=== PATIENT | female | born 1990 | race Caucasian/White ===

== ENCOUNTER 2017-02-06 11:42 | Inpatient (IN) | payer OTHER ==
[2017-02-06 12:41] VITALS: BMI 24.7
[2017-02-06] MEDS ORDERED: ACETAMINOPHEN 325 MG TABLET (FP) PO PRN (15:28)
[2017-02-06] MEDS ORDERED: MAGNESIUM HYDROX 2400MG/30ML ORAL SUSPENSION 30 ML CUP PO PRN (15:28)
[2017-02-06] MEDS ORDERED: MAG HYDROX/AL HYDROX/SIMETH 30 ML UNIT-DOSE CUP PO PRN (15:28)
[2017-02-06] MEDS ORDERED: guaiFENesin/D-METHORPHAN HB 10 ML UNIT-DOSE CUPS PO PRN (15:28)
[2017-02-06] MEDS ORDERED: IBUPROFEN 400 MG TABLET (FP) PO PRN (15:28)
[2017-02-06] MEDS ORDERED: P-EPHED 60MG/TRIPROLIDI 2.5MG TABLET PO PRN (15:28)
[2017-02-06] MEDS ORDERED: LOPERAMIDE HCL 2 MG CAPSULE PO PRN (15:28)
[2017-02-06] MEDS ORDERED: MAGNESIUM CITRATE 300 ML BOTTLE PO PRN (15:28)
[2017-02-06] MEDS ORDERED: MENTHOL/PHENOL 1 EACH UD MM PRN (15:28)
--- NOTE | 2017-02-06 15:28 | HP ---
COWS - Scale Resting Pulse: 0= [place] 80 or Below Sweatin= Chills/Flushing Restless Observation: 3= Extraneous Movement Pupil Size: 0= Normal to Room Light Bone or Joint Aches: 4=Acute Joint/Muscle Pain Runny Nose/ Eye Tearin= Nasal Congestion GI Upset > 30mins: 1= Stomach Cramp Tremor Observation: 1= Tremor [place], Not Seen Yawning Observation: 1= 1-2x During Session Anxiety or Irritability: 2=Irritable/Anxious Goose Flesh Skin: 0=Smooth Skin COWS Score: 14 Admission ROS [facility] - [facility] Chief Complaint: WITHDRAWAL SX FROM HEROIN Allergies/Adverse Reactions: Allergies Allergy/AdvReac Type Severity Reaction Status Date / Time Penicillins Allergy Intermediate Itching Verified 02/06/17 15:28 risperidone [From Risperdal] Allergy Intermediate Swelling Verified 02/06/17 15: 28 History of Present Illness: 26 Y/O FEMALE WITH A HX OF HEROIN DEPENDENCE SEEKING DETOX [place]. PT REPORTS HE WAS IN [facility] IN [place] BUT WENT TO HALF-WAY IN NOVEMBER 28, 2016 TO January. PT STATES SHE WENT BACK TO THE SAME MMTP AFTER HALF-WAY ON January. SAYS SHE STOPPED GOING TO [facility] A WEEK AGO AFTER TWO CLINIC VISITS BECAUSE "I WANTED TO USE DRUGS". SHE CLAIMS SHE WAS ON 20 MG METHADONE PO DAILY. PT STATES SHE OVERDOSED AND WAS TAKEN TO [facility] ON 04/08/16 AND DISCHARGED SAME DAY. PT STATES SHE LOST HER MMTP CARD AND UNABLE TO FURNISH THE CLINIC PHONE NUMBER. Exam Limitations: No Limitations - Ebola screening Have you traveled outside of the country in the last 21 days: No (N) Have you had contact with anyone from an Ebola affected area: No Have you been sick,other than usual withdrawal symptoms: No Do you have a fever: No - Review of Systems Constitutional: Loss of Appetite, Night Sweats, Changes in sleep EENT: reports: Tearing, Nose Congestion, Dental Problems (MISSING TOOTH) Respiratory: reports: Shortness of Breath (HX ASTHMA), Wheezing Cardiac: reports: Lightheadedness, Palpitations GI: reports: Constipated, Diarrhea, Nausea, Vomiting : reports: No Symptoms Reported Musculoskeletal: reports: Back Pain, Joint Pain, Muscle Pain Integumentary: reports: Bruising (IVD INJ TRACKS ON BOTH ARMS AND ANKLES.), Rash (FACE.) Neuro: reports: Headache, Dizziness Endocrine: reports: No Symptoms Reported Hematology: reports: No Symptoms Reported Psychiatric: reports: Orientated x3 Other Systems: Reviewed and Negative Patient History - Patient Medical History Hx Anemia: No Hx Asthma: Yes (MDI) Hx Cardiac Disorders: No Hx Hypertension: No Hx Hypercholesterolemia: No HX Cerebrovascular Accident: No Hx Seizures: No Hx Diabetes: No Hx Gastrointestinal Disorders: No Hx Genitourinary Disorders: No Hx Sexually Transmitted Disorders: Yes (HX CHLAMYDIA [place]) Hx Renal Disease (ESRD): No Hx Thyroid Disease: No Hx Human Immunodeficiency Virus (HIV): No (NEGATIVE HX) Hx Hepatitis C: No Hx Depression: Yes (AND ANXIETY) Hx Suicide Attempt: No (DENIES) Hx Bipolar Disorder: Yes - Patient Surgical History Past Surgical History: No Hx Neurologic Surgery: No Hx Cataract Extraction: No Hx Cardiac Surgery: No Hx Lung Surgery: No Hx Breast Surgery: No Hx Breast Biopsy: No Hx Abdominal Surgery: No Hx Appendectomy: No Hx Cholecystectomy: No Hx Genitourinary Surgery: No Hx Section: No Hx Orthopedic Surgery: No Hx Hysterectomy: No Anesthesia Reaction: No - PPD History Previous Implant?: Yes Documented Results: Negative w/o proof Implanted On Prior [facility] Admission?: No PPD to be Administered?: Yes - Reproductive History Patient is a Female of Child Bearing Age (11 -55 yrs old): Yes LMP comment: 2 YRS AGO-IRREGULAR PERIODS Patient : Yes - Smoking Cessation Smoking history: Current every day smoker Have you smoked in the past 12 months: Yes Aproximately how many cigarettes per day: 10 Hx Chewing Tobacco Use: No Initiated information on smoking cessation: Yes 'Breaking Loose' booklet given: 02/06/17 - Substance & Tx. History Hx Alcohol Use: No (DENIES) Hx Substance Use: Yes (HERION/COCAINE) Substance Use Type: Cocaine, Heroin Hx Substance Use Treatment: Yes (LAST DETOX AT [facility] - Substances Abused Heroin Route: Injection Frequency: Daily Amount used: 20 bags of heroin Age of first use: 23 Date of Last Use: 02/06/17 Crack Route: Smoking Frequency: Daily Amount used: 20 bags- $200 Age of first use: 23 Date of Last Use: 02/06/17 Marijuana/Hashish Route: Smoking Frequency: Daily Amount used: 3 BLUNTS Age of first use: 17 Date of Last Use: 02/06/17 Family Disease History - Family Disease History Family History: Denies Admission Physical Exam [facility] - Vital Signs Vital Signs: Vital Signs - 24 hr 02/06/17 12:38 Temperature 95.5 F L Pulse Rate 74 Respiratory 18 Rate Blood Pressure 115/65 - Physical General Appearance: Yes: Moderate Distress, Irritable, Anxious HEENTM: Yes: EOMI, Normocephalic, Pharynx Normal Respiratory: Yes: Chest Non-Tender, Lungs Clear, Normal Breath Sounds, No Respiratory Distress Neck: Yes: No masses,lesions,Nodules, Supple, Trachea in good position Breast: Yes: Breast Exam Deferred Cardiology: Yes: Regular Rhythm, Regular Rate, S1, S2, Murmur Abdominal: Yes: Normal Bowel Sounds, Non Tender, Flat, Soft Genitourinary: Yes: Other (N/C) Back: Yes: Within Normal Limits Musculoskeletal: Yes: full range of Motion, Gait Steady Extremities: Yes: Normal Range of Motion, Non-Tender Neurological: Yes: hot plate plywood press feeder II-XII NML intact, Fully Oriented, Alert, Motor Strength 5/5 Integumentary: Yes: Dry, Warm Lymphatic: Yes: Within Normal Limits - Diagnostic (1) Opioid dependence with withdrawal Current Visit: Yes Status: Acute (2) Cocaine dependence, uncomplicated Current Visit: Yes Status: Acute (3) Cannabis dependence, uncomplicated Current Visit: Yes Status: Acute (4) Asthma Current Visit: Yes Status: Acute Qualifiers: Asthma severity: unspecified severity Asthma persistence: unspecified Asthma complication type: uncomplicated Qualified Code(s): J45.909 - Unspecified asthma, uncomplicated Cleared for Admission [facility] - Detox or Rehab [facility] Level of Care: Medically Managed Detox Regimen/Protocol: Methadone [facility] Breath Alcohol Content Breath Alcohol Content: 0 Urine Pregancy Test - Result Urine Test Results: Negative- NO Line Present Urine Drug Screen - Results Drug Screen Negative: No Urine Drug Screen Results: THC-Marijuana, DIANA-Cocaine, OPI-Opiates
[2017-02-06] MEDS ORDERED: ALBUTEROL SO4 18 GM HFA INHALER IH PRN (15:31)
[2017-02-06] MEDS ORDERED: diphenhydrAMINE HCL 25 MG CAPSULE (FP) PO PRN (16:07)
[2017-02-06] MEDS: NICOTINE 14 MG/24 HOURS TOPICAL PATCH TD SCH (17:12)
[2017-02-06] MEDS: diazePAM 5 MG TABLET PO PRN ×2 (17:14→22:19)
[2017-02-06] MEDS ORDERED: METHADONE HCL 10 MG TABLET (FOR DETOX USE ONLY) PO ONE ×2 (17:15→23:00)
[2017-02-06 21:32] LABS: URINE APPEARANCE CLEAR; URINE BILIRUBIN NEGATIVE (NEGATIVE); URINE BLOOD NEGATIVE (NEGATIVE); URINE COLOR LTYELLOW; URINE GLUCOSE (UA) NEGATIVE (NEGATIVE); URINE KETONE NEGATIVE (NEGATIVE); URINE LEUK ESTERASE NEGATIVE (NEGATIVE); URINE NITRITE NEGATIVE (NEGATIVE); URINE PROTEIN NEGATIVE (NEGATIVE); URINE UROBILINOGEN NEGATIVE mg/dL (0.2-1.0)
[2017-02-06] MEDS: QUEtiapine FUMARATE 100 MG TABLET (FP) PO SCH (22:18)
[2017-02-06] MEDS: THIAMINE HCL 100 MG TABLET (FP) PO SCH (22:18)
[2017-02-07] MEDS: diazePAM 5 MG TABLET PO PRN ×3 (06:32→22:18)
--- NOTE | 2017-02-07 07:50 | CONSULT ---
[facility] Psychiatric Consult - Data Date of interview: 02/07/17 Admission source: [facility] Identifying data: This is 26 years old female with no psychiatric hospitalization history intoxicated with: Opioids, Cocaine and Cannabis Substance Abuse History: - Smoking Cessation. Smoking history: Current every day smoker. Have you smoked in the past 12 months: Yes. Aproximately how many cigarettes per day: 10. Hx Chewing Tobacco Use: No. Initiated information on smoking cessation: Yes. 'Breaking Loose' booklet given: 02/06/17. - Substance & Tx. History. Hx Alcohol Use: No (DENIES). Hx Substance Use: Yes (HERION/ COCAINE). Substance Use Type: Cocaine, Heroin. Hx Substance Use Treatment: Yes (LAST DETOX AT [facility] - Substances Abused. Heroin. Route: Injection. Frequency: Daily. Amount used: 20 bags of heroin. Age of first use : 23. Date of Last Use: 02/06/17. Crack. Route: Smoking. Frequency: Daily. Amount used: 20 bags- $200. Age of first use: 23. Date of Last Use: . Marijuana/Hashish. Route: Smoking. Frequency: Daily. Amount used : 3 BLUNTS. Age of first use: 17. Date of Last Use: 02/06/17 Medical History: Asthma Psychiatric History: Patient reports anxiety and insomnia, reports taking prior to admission: Seroquel 100mg po qhs Physical/Sexual Abuse/Trauma History: Denies Additional Comment: Seroquel 100mg po qhs Mental Status Exam - Mental Status Exam Alert and Oriented to: Person Cognitive Function: Fair Patient Appearance: Unkempt Mood: Sad Affect: Flat Patient Behavior: Sedated Speech Pattern: Delayed Voice Loudness: Mildly Soft/Quiet, Limited Variation Thought Disorder: Being Controlled Hallucinations: Denies Suicidal Ideation: Denies Insight/Judgement: Fair Sleep: Difficulty falling asleep Appetite: Fair Muscle strength/Tone: Mild Hypotonicity Gait/Station: Shuffling Additional Comments: Seroquel 100mg po qhs Psychiatric Findings - Problem List ([place] 1, 2,3) (1) Drug-induced mood disorder Current Visit: Yes Status: Acute (2) Cannabis dependence, uncomplicated Current Visit: Yes Status: Acute (3) Cocaine dependence, uncomplicated Current Visit: Yes Status: Acute (4) Opioid dependence with withdrawal Current Visit: Yes Status: Acute - Initial Treatment Plan Initial Treatment Plan: Seroquel 100mg po qhs
[2017-02-07] MEDS ORDERED: METHADONE HCL 10 MG TABLET (FOR DETOX USE ONLY) PO ONE (10:00)
[2017-02-07 10:13] LABS: CHLORIDE 102 mmol/L (98-107); SODIUM 139 mmol/L (136-145)
[2017-02-07 10:25] LABS: ALK PHOS 124 U/L (45-117); ANION GAP 7 (8-16); BILIRUBIN,TOTAL 0.4 mg/dL (0.2-1.0); BLOOD UREA NITROGEN 10 mg/dL (7-18); CALCIUM 8.8 mg/dL (8.5-10.1); CO2 30 mmol/L (21-32); CREATININE 0.8 mg/dL (0.55-1.02); GLUCOSE,RANDOM 116 mg/dL (74-106); SGOT/AST 74 U/L (15-37); SGPT/ALT 109 U/L (12-78); TOT PROT 6.8 g/dl (6.4-8.2)
[2017-02-07 10:47] LABS: HEMATOCRIT 39.7 % (32.4-45.2); HEMOGLOBIN 12.7 GM/dL (10.7-15.3); MCH 26.9 pg (25.7-33.7); MEAN CELL VOLUME 84.1 fl (80-96); MEAN PLT VOLUME 7.4 fl (7.5-11.1); PLATELET COUNT 396 K/MM3 (134-434); RBC 4.73 M/mm3 (3.60-5.2); RDW 16.9 % (11.6-15.6); WHITE BLOOD COUNT 5.7 K/mm3 (4.0-10.0)
[2017-02-07] MEDS: PRENATAL VITAMINS W/ FOLIC ACID TABLET (FP) PO SCH (10:51)
[2017-02-07] MEDS: NICOTINE 14 MG/24 HOURS TOPICAL PATCH TD SCH (10:52)
[2017-02-07] MEDS: NICOTINE POLACRILEX 2 MG GUM BUC PRN ×2 (10:54→21:22)
--- NOTE | 2017-02-07 11:24 | PN ---
[facility] COWS - Scale Resting Pulse: 1= [place] 81-100 Sweatin= Chills/Flushing Restless Observation: 1= Difficult to Sit Still Pupil Size: 1= Pupils >than Normal Bone or Joint Aches: 1= Mild Discomfort Runny Nose/ Eye Tearin= Nasal Congestion GI Upset > 30mins: 1= Stomach Cramp Tremor Observation of Outstretched Hands: 1= Tremor [employer], Not Seen Yawning Observation: 0= None Anxiety or Irritability: 1=Feels Anxious/Irritable Goose Flesh Skin: 0=Smooth Skin COWS Score: 9 [facility] Progress Note (SOAP) Subjective: interrupted sleep, sweats Objective: 02/07/17 11:22 Vital Signs Temperature 98.6 F 02/07/17 10:00 Pulse Rate 106 H 02/07/17 10:00 Respiratory Rate 17 02/07/17 10:00 Blood Pressure 100/41 02/07/17 10:00 O2 Sat by Pulse Oximetry (%) Laboratory Tests 02/06/17 02/07/17 02/07/17 21:00 07:54 07:54 WBC 5.7 RBC 4.73 Hgb 12.7 Hct 39.7 MCV 84.1 MCH 26.9 MCHC 32.0 RDW 16.9 H Plt Count 396 MPV 7.4 L Sodium 139 Potassium 4.0 Chloride 102 Carbon Dioxide 30 Anion Gap 7 L BUN 10 Creatinine 0.8 Creat Clearance w eGFR > 60 Random Glucose 116 H Calcium 8.8 Total Bilirubin 0.4 AST 74 H ALT 109 H Alkaline Phosphatase 124 H Total Protein 6.8 Albumin 3.0 L Urine Color Ltyellow Urine Appearance Clear Urine pH 8.0 Ur Specific [place] 1.012 Urine Protein Negative Urine Glucose (UA) Negative Urine Ketones Negative Urine Blood Negative Urine Nitrite Negative Urine Bilirubin Negative Urine Urobilinogen Negative Ur Leukocyte Esterase Negative pt aox3 in nad ambulating Assessment: 02/07/17 11:23 withdrawal sx's elevated transaminases Plan: cont. detox increase fluids sgot/sgpt repeat d/c tylenol
[2017-02-07] MEDS ORDERED: FLU VACCINE QUAD 60 MCG/0.5 ML (MDV 17-18) IM ONE (12:00)
--- NOTE | 2017-02-07 13:02 | EKG ---
Test Reason : Blood Pressure : / mmHG Vent. Rate : 073 BPM Atrial Rate : 073 BPM P-R Int : 112 ms QRS Dur : 088 ms QT Int : 404 ms P-R-T Axes : -43 043 036 degrees QTc Int : 445 ms UNUSUAL P AXIS, POSSIBLE ECTOPIC ATRIAL RHYTHM ABNORMAL ECG NO PREVIOUS ECGS AVAILABLE Confirmed by MAGEN HAYNES MD ([id number]) on 02/07/2017 1:02:04 PM Referred By: Kash Guevara Confirmed By:MAGEN HAYNES MD
[2017-02-07 15:02] LABS: SICKLE CELL SCREEN POSITIVE (NEGATIVE)
[2017-02-07] MEDS: THIAMINE HCL 100 MG TABLET (FP) PO SCH (22:18)
[2017-02-07] MEDS: QUEtiapine FUMARATE 100 MG TABLET (FP) PO SCH ×2 (22:18→22:19)
[2017-02-08] MEDS: NICOTINE POLACRILEX 2 MG GUM BUC PRN ×5 (05:41→17:20)
[2017-02-08] MEDS ORDERED: METHADONE HCL 5 MG TABLET (FOR DETOX USE ONLY) PO ONE (10:00)
[2017-02-08 10:03] LABS: SGOT/AST 84 U/L (15-37); SGPT/ALT 115 U/L (12-78)
[2017-02-08] MEDS: NICOTINE 14 MG/24 HOURS TOPICAL PATCH TD SCH (10:38)
[2017-02-08] MEDS: PRENATAL VITAMINS W/ FOLIC ACID TABLET (FP) PO SCH (10:38)
[2017-02-08] MEDS: diazePAM 5 MG TABLET PO PRN ×3 (10:40→22:32)
--- NOTE | 2017-02-08 17:17 | PN ---
S COWS - Scale Resting Pulse: 1= [place] 81-100 Sweatin= Chills/Flushing Restless Observation: 3= Extraneous Movement Pupil Size: 0= Normal to Room Light Bone or Joint Aches: 2= Severe Diffuse Aches Runny Nose/ Eye Tearin= Runny Nose/Eyes GI Upset > 30mins: 2= Nausea/Diarrhea Tremor Observation of Outstretched Hands: 2= Slight Tremor Visible Yawning Observation: 1= 1-2x During Session Anxiety or Irritability: 2=Irritable/Anxious Goose Flesh Skin: 0=Smooth Skin COWS Score: 16 S Progress Note (SOAP) Subjective: Sweating, anxious, interrupted sleep Objective: 02/08/17 17:16 Last Vital Signs Temp Pulse Resp BP Pulse Ox 98 F 98 H 18 121/98 02/08/17 14:03 02/08/17 14:03 02/08/17 14:03 02/08/17 14:03 Laboratory Tests 02/06/17 02/07/17 02/07/17 21:00 07:54 07:54 WBC 5.7 RBC 4.73 Hgb 12.7 Hct 39.7 MCV 84.1 MCH 26.9 MCHC 32.0 RDW 16.9 H Plt Count 396 MPV 7.4 L Sickle Cell Screen Positive Sodium Potassium Chloride Carbon Dioxide Anion Gap BUN Creatinine Creat Clearance w eGFR Random Glucose Calcium Total Bilirubin AST ALT Alkaline Phosphatase Total Protein Albumin Urine Color Ltyellow Urine Appearance Clear Urine pH 8.0 Ur Specific [place] 1.012 Urine Protein Negative Urine Glucose (UA) Negative Urine Ketones Negative Urine Blood Negative Urine Nitrite Negative Urine Bilirubin Negative Urine Urobilinogen Negative Ur Leukocyte Esterase Negative RPR Titer HIV 1&2 Antibody Screen Negative HIV P24 Antigen Negative 02/07/17 02/07/17 02/08/17 07:54 07:54 08:00 WBC RBC Hgb Hct MCV MCH MCHC RDW Plt Count MPV Sickle Cell Screen Sodium 139 Potassium 4.0 Chloride 102 Carbon Dioxide 30 Anion Gap 7 L BUN 10 Creatinine 0.8 Creat Clearance w eGFR > 60 Random Glucose 116 H Calcium 8.8 Total Bilirubin 0.4 AST 74 H 84 H ALT 109 H 115 H Alkaline Phosphatase 124 H Total Protein 6.8 Albumin 3.0 L Urine Color Urine Appearance Urine pH Ur Specific [place] Urine Protein Urine Glucose (UA) Urine Ketones Urine Blood Urine Nitrite Urine Bilirubin Urine Urobilinogen Ur Leukocyte Esterase RPR Titer Nonreactive HIV 1&2 Antibody Screen HIV P24 Antigen Labs noted Assessment: 02/08/17 17:16 Withdrawal symptoms Plan: Continue detox
[2017-02-08] MEDS: QUEtiapine FUMARATE 100 MG TABLET (FP) PO SCH ×2 (22:32→23:22)
[2017-02-08] MEDS: THIAMINE HCL 100 MG TABLET (FP) PO SCH (22:32)
[2017-02-09] MEDS: diazePAM 5 MG TABLET PO PRN ×3 (06:02→14:59)
[2017-02-09] MEDS: NICOTINE POLACRILEX 2 MG GUM BUC PRN ×5 (06:03→20:19)
[2017-02-09] MEDS ORDERED: METHADONE HCL 5 MG TABLET (FOR DETOX USE ONLY) PO ONE (10:00)
[2017-02-09] MEDS: PRENATAL VITAMINS W/ FOLIC ACID TABLET (FP) PO SCH (10:53)
[2017-02-09] MEDS: NICOTINE 14 MG/24 HOURS TOPICAL PATCH TD SCH (10:54)
--- NOTE | 2017-02-09 16:04 | PN ---
S Progress Note (SOAP) Subjective: Interrupted sleep, tremor, diarrhea, sweating Objective: 02/09/17 16:03 Last Vital Signs Temp Pulse Resp BP Pulse Ox 97 F L 101 H 18 113/77 02/09/17 14:49 02/09/17 14:49 02/09/17 14:49 02/09/17 14:49 Laboratory Tests 02/06/17 02/07/17 02/07/17 21:00 07:54 07:54 WBC 5.7 RBC 4.73 Hgb 12.7 Hct 39.7 MCV 84.1 MCH 26.9 MCHC 32.0 RDW 16.9 H Plt Count 396 MPV 7.4 L Sickle Cell Screen Positive Sodium Potassium Chloride Carbon Dioxide Anion Gap BUN Creatinine Creat Clearance w eGFR Random Glucose Calcium Total Bilirubin AST ALT Alkaline Phosphatase Total Protein Albumin Urine Color Ltyellow Urine Appearance Clear Urine pH 8.0 Ur Specific [place] 1.012 Urine Protein Negative Urine Glucose (UA) Negative Urine Ketones Negative Urine Blood Negative Urine Nitrite Negative Urine Bilirubin Negative Urine Urobilinogen Negative Ur Leukocyte Esterase Negative RPR Titer HIV 1&2 Antibody Screen Negative HIV P24 Antigen Negative 02/07/17 02/07/17 02/08/17 07:54 07:54 08:00 WBC RBC Hgb Hct MCV MCH MCHC RDW Plt Count MPV Sickle Cell Screen Sodium 139 Potassium 4.0 Chloride 102 Carbon Dioxide 30 Anion Gap 7 L BUN 10 Creatinine 0.8 Creat Clearance w eGFR > 60 Random Glucose 116 H Calcium 8.8 Total Bilirubin 0.4 AST 74 H 84 H ALT 109 H 115 H Alkaline Phosphatase 124 H Total Protein 6.8 Albumin 3.0 L Urine Color Urine Appearance Urine pH Ur Specific [place] Urine Protein Urine Glucose (UA) Urine Ketones Urine Blood Urine Nitrite Urine Bilirubin Urine Urobilinogen Ur Leukocyte Esterase RPR Titer Nonreactive HIV 1&2 Antibody Screen HIV P24 Antigen Labs noted Assessment: 02/09/17 16:04 Withdrawal symptoms Plan: Continue detox Encouraged to drink lots of water for hydration
--- NOTE | 2017-02-09 16:53 | PN ---
Psychiatric Progress Note Vital Signs: Vital Signs Period Temp Pulse Resp BP Sys/Howard Pulse Ox Last 24 Hr 96.4 F-97.9 F 87-104 16-20 113-125/66-77 Date of Session: 02/09/17 Chief Complaint:: "I'm having difficultly sleeping. I need more medications." HPI: Pt. admitted to for opioid, cocaine, and cannabis dependence. ROS: Pt. alert and oriented. Pt. visible on unit. Current Medications: Active Medications Generic Name Dose Route Start Last Admin Trade Name Freq PRN Reason Stop Dose Admin Al Hydroxide/Mg Hydroxide 30 ml 02/06/17 15:28 Mylanta Oral Suspension - PO Q6H PRN DYSPEPSIA Albuterol Sulfate 0 puff 02/06/17 15:31 Ventolin Hfa Inhaler - IH Q4H PRN ASTHMA Diphenhydramine HCl 25 mg 02/06/17 16:07 Benadryl - PO TID PRN FOR ITCHING Eucalyptus/Menthol/Phenol/Sorbitol 1 each 02/06/17 15:28 Cepastat Lozenge - MM Q4H PRN SORE THROAT Guaifenesin 10 ml 02/06/17 15:28 Robitussin Dm - PO Q6H PRN COUGH Ibuprofen 400 mg 02/06/17 15:28 Motrin - PO Q6H PRN SEVERE PAIN Loperamide HCl 4 mg 02/06/17 15:28 Imodium - PO Q6H PRN DIARRHEA Magnesium Citrate 300 ml 02/06/17 15:28 Citroma - PO Q48H PRN CONSTIPATION Magnesium Hydroxide 30 ml 02/06/17 15:28 Milk Of Magnesia - PO DAILY PRN CONSTIPATION Methadone HCl 5 mg 02/11/17 06:00 Dolophine - PO 02/11/17 06:01 ONCE@0600 ONE Methadone HCl 10 mg 02/10/17 10:00 Dolophine - PO 02/10/17 10:01 ONCE ONE Nicotine 14 mg 02/06/17 15:30 02/09/17 10:54 Nicoderm Patch - TD 14 mg DAILY KRISTY Administration Nicotine Polacrilex 2 mg 02/06/17 15:28 02/09/17 14:59 Nicorette Gum - BUC 2 mg Q2H PRN Administration NICOTINE REPLACEMENT RX Multivit/Folic Acid/Iron 1 tab 02/07/17 10:00 02/09/17 10:53 Vitamins ([facility]) - PO 1 tab DAILY KRISTY Administration Pseudoephedrine/Triprolidine 1 combo 02/06/17 15:28 Actifed - PO TID PRN NASAL CONGESTION Quetiapine Fumarate 100 mg 02/06/17 22:00 02/08/17 22:32 Seroquel - PO 100 mg HS KRISTY Administration Quetiapine Fumarate 100 mg 02/07/17 22:00 02/08/17 23:22 Seroquel - PO Not Given HS KRISTY Thiamine HCl 100 mg 02/06/17 22:00 02/08/17 22:32 Vitamin B1 - PO 100 mg HS KRISTY Administration Medication(s) Change(s): Will increase seroquel dose to 150mg qhs Current Side Effect: No Lab tests ordered: No Lab tests reviewed: Yes Provider note:: Hvac Mechanical Engineer approached patient concerning psychiatric reconsultation. Pt. requesting an additional sleep aid at this time. States the seroquel 100mg is not helping her sleep through the night. Sleep hygiene and psychoeducation provided. Pt. receptive to feedback. Will raise seroquel dose to seroquel 150mg. Verbal consent given. Benefits and side effects discussed. Will continue to monitor. Total face to face time:: 25 Mental Status Exam - Mental Status Exam Alert and Oriented to: Time, Place, Person Cognitive Function: Good Patient Appearance: Unkempt Mood: Anxious Affect: Flat Patient Behavior: Restless (Pt. itching) Speech Pattern: Clear Voice Loudness: Normal Thought Process: Goal Oriented Thought Disorder: Not Present Hallucinations: Denies Suicidal Ideation: Denies Homicidal Ideation: Denies Insight/Judgement: Poor Sleep: Poorly Appetite: Fair Muscle strength/Tone: Normal Gait/Station: Normal Psychiatric Treatment Plan - Problem List (1) Opioid dependence with withdrawal Current Visit: Yes (2) Insomnia Current Visit: Yes (3) Drug-induced mood disorder Current Visit: Yes (4) Cannabis dependence, uncomplicated Current Visit: Yes (5) Cocaine dependence, uncomplicated Current Visit: Yes
[2017-02-09] MEDS ORDERED: QUEtiapine FUMARATE 50 MG TABLET PO SCH (22:00)
[2017-02-09] MEDS: THIAMINE HCL 100 MG TABLET (FP) PO SCH (22:23)
[2017-02-10 00:06] LABS: HGB SOLUBILITY Positive (Negative); Hgb A 56.8 % (96.4-98.8); Hgb C 0 % (0.0); Hgb F 1.6 % (0.0-2.0); Hgb S 37.9 % (0.0)
[2017-02-10] MEDS: NICOTINE POLACRILEX 2 MG GUM BUC PRN (08:55)
[2017-02-10] MEDS: PRENATAL VITAMINS W/ FOLIC ACID TABLET (FP) PO SCH (09:56)
[2017-02-10] MEDS ORDERED: METHADONE HCL 5 MG TABLET (FOR DETOX USE ONLY) PO ONE (10:00)
[2017-02-10] MEDS ORDERED: METHADONE HCL 10 MG TABLET (FOR DETOX USE ONLY) PO ONE (10:00)
[2017-02-10 11:06] VITALS: BP 120/82; PULSE 113; TEMP 96.7
--- NOTE | 2017-02-10 12:31 | DS ---
[facility] Summary Admission Date: 02/06/17 Discharge Date: 02/10/17 - History Present History: Cannabis Dependence, Cocaine Dependence, Opioid Dependence - Physical Exam Results Vital Signs: Vital Signs Temperature 96.7 F L 02/10/17 10:00 Pulse Rate 113 H 02/10/17 10:00 Respiratory Rate 18 02/10/17 10:00 Blood Pressure 120/82 02/10/17 10:00 O2 Sat by Pulse Oximetry (%) Pertinent Admission Physical Exam Findings: Withdrawal sx Laboratory Last Values WBC 5.7 K/mm3 (4.0-10.0) 02/07/17 07:54 RBC 4.73 M/mm3 (3.60-5.2) 02/07/17 07:54 Hgb 12.7 GM/dL (10.7-15.3) 02/07/17 07:54 Hct 39.7 % (32.4-45.2) 02/07/17 07:54 MCV 84.1 fl (80-96) 02/07/17 07:54 MCH 26.9 pg (25.7-33.7) 02/07/17 07:54 MCHC 32.0 g/dl (32.0-36.0) 02/07/17 07:54 RDW 16.9 % (11.6-15.6) H 02/07/17 07:54 Plt Count 396 K/MM3 (134-434) 02/07/17 07:54 MPV 7.4 fl (7.5-11.1) L 02/07/17 07:54 Sickle Cell Screen Positive (NEGATIVE) 02/07/17 07:54 Hemoglobin A 56.8 % (96.4-98.8) L 02/07/17 07:54 Hemoglobin A2 3.7 % (1.8-3.2) H 02/07/17 07:54 Hemoglobin C 0 % (0.0) 02/07/17 07:54 Hemoglobin S 37.9 % (0.0) H 02/07/17 07:54 Variant Hemoglobin TNP 02/07/17 07:54 Hemoglobin Interpret (.) 02/07/17 07:54 Maternal Rh 1.6 % (0.0-2.0) 02/07/17 07:54 Hemoglobin Solubility Positive (Negative) H 02/07/17 07:54 Sodium 139 mmol/L (136-145) 02/07/17 07:54 Potassium 4.0 mmol/L (3.5-5.1) 02/07/17 07:54 Chloride 102 mmol/L (98-107) 02/07/17 07:54 Carbon Dioxide 30 mmol/L (21-32) 02/07/17 07:54 Anion Gap 7 (8-16) L 02/07/17 07:54 BUN 10 mg/dL (7-18) 02/07/17 07:54 Creatinine 0.8 mg/dL (0.55-1.02) 02/07/17 07:54 Creat Clearance w eGFR > 60 (>60) 02/07/17 07:54 Random Glucose 116 mg/dL (74-106) H 02/07/17 07:54 Calcium 8.8 mg/dL (8.5-10.1) 02/07/17 07:54 Total Bilirubin 0.4 mg/dL (0.2-1.0) 02/07/17 07:54 AST 84 U/L (15-37) H 02/08/17 08:00 ALT 115 U/L (12-78) H 02/08/17 08:00 Alkaline Phosphatase 124 U/L (45-117) H 02/07/17 07:54 Total Protein 6.8 g/dl (6.4-8.2) 02/07/17 07:54 Albumin 3.0 g/dl (3.4-5.0) L 02/07/17 07:54 Urine Color Ltyellow 02/06/17 21:00 Urine Appearance Clear 02/06/17 21:00 Urine pH 8.0 (5.0-8.0) 02/06/17 21:00 Ur Specific [place] 1.012 (1.001-1.035) 02/06/17 21:00 Urine Protein Negative (NEGATIVE) 02/06/17 21:00 Urine Glucose (UA) Negative (NEGATIVE) 02/06/17 21:00 Urine Ketones Negative (NEGATIVE) 02/06/17 21:00 Urine Blood Negative (NEGATIVE) 02/06/17 21:00 Urine Nitrite Negative (NEGATIVE) 02/06/17 21:00 Urine Bilirubin Negative (NEGATIVE) 02/06/17 21:00 Urine Urobilinogen Negative mg/dL (0.2-1.0) 02/06/17 21:00 Ur Leukocyte Esterase Negative (NEGATIVE) 02/06/17 21:00 RPR Titer Nonreactive (NONREACTIVE) 02/07/17 07:54 HIV 1&2 Antibody Screen Negative 02/07/17 07:54 HIV P24 Antigen Negative 02/07/17 07:54 Labs noted, AST/ALT elevated. pt will f/u with PMD - Treatment Hospital Course: Detox Protocol Followed, Detoxed Safely, Responded well, Discharged Condition Good Patient has Accepted a Rehab Referral to: O/P at [facility] - Medication Discharge Medications: Ambulatory Orders Albuterol Sulfate Inhaler - [Ventolin Hfa Inhaler -] 1 - 2 inh PO Q4H PRN Quetiapine Fumarate [Seroquel] 100 tab PO HS #30 tablet 02/07/17 - Diagnosis (1) Opioid dependence, uncomplicated Current Visit: Yes Status: Acute (2) Cocaine dependence, uncomplicated Current Visit: Yes Status: Chronic (3) Cannabis dependence, uncomplicated Current Visit: Yes Status: Chronic (4) Asthma Current Visit: Yes Status: Chronic Qualifiers: Asthma severity: unspecified severity Asthma persistence: unspecified Asthma complication type: uncomplicated Qualified Code(s): J45.909 - Unspecified asthma, uncomplicated (5) Nicotine dependence Current Visit: Yes Status: Acute - AMA Did Patient Leave Against Medical Advice: No
[2017-02-11] MEDS ORDERED: METHADONE HCL 5 MG TABLET (FOR DETOX USE ONLY) PO ONE (06:00)
== END 2017-02-10 10:33 | disposition home or self-care (01) | DRG 773 ==
LOC: YASAS 11:42 → Y6N 15:53
PROVIDERS: ADMIT Internal Medicine; ATTEND Internal Medicine
PROC: HZ2ZZZZ Detoxification Services for Substance Abuse Treatment (ICD-10-PCS; principal; 2017-02-06)
DX: F11.23 Opioid dependence with withdrawal (principal); F14.20 Cocaine dependence, uncomplicated; F12.20 Cannabis dependence, uncomplicated; F17.210 Nicotine dependence, cigarettes, uncomplicated; F19.24 Other psychoactive substance dependence with psychoactive substance-induced mood disorder; J45.909 Unspecified asthma, uncomplicated; G47.00 Insomnia, unspecified; R74.0 Nonspecific elevation of levels of transaminase and lactic acid dehydrogenase [LDH]; R01.1 Cardiac murmur, unspecified; Z88.0 Allergy status to penicillin; Z87.42 Personal history of other diseases of the female genital tract
CPT/HCPCS: 36415; 80053; 81003; 83021; 84450; 84460; 85027; 85660; 86593; 87389; 90688; 93005; 93010; G0008

== ENCOUNTER 2017-02-13 11:53 | Inpatient (IN) | payer OTHER ==
[2017-02-13 14:40] VITALS: BMI 27.1
[2017-02-13] MEDS ORDERED: P-EPHED 60MG/TRIPROLIDI 2.5MG TABLET PO PRN (16:50)
[2017-02-13] MEDS ORDERED: MENTHOL/PHENOL 1 EACH UD MM PRN (16:50)
[2017-02-13] MEDS ORDERED: MAG HYDROX/AL HYDROX/SIMETH 30 ML UNIT-DOSE CUP PO PRN (16:50)
[2017-02-13] MEDS ORDERED: MAGNESIUM HYDROX 2400MG/30ML ORAL SUSPENSION 30 ML CUP PO PRN (16:50)
[2017-02-13] MEDS ORDERED: guaiFENesin/D-METHORPHAN HB 10 ML UNIT-DOSE CUPS PO PRN (16:50)
[2017-02-13] MEDS ORDERED: IBUPROFEN 400 MG TABLET (FP) PO PRN (16:50)
[2017-02-13] MEDS ORDERED: MAGNESIUM CITRATE 300 ML BOTTLE PO PRN (16:50)
[2017-02-13] MEDS ORDERED: ACETAMINOPHEN 325 MG TABLET (FP) PO PRN (16:50)
[2017-02-13] MEDS ORDERED: LOPERAMIDE HCL 2 MG CAPSULE PO PRN (16:50)
--- NOTE | 2017-02-13 16:50 | HP ---
[facility] Rehab Assess/Revision - Admission History Admitted to Rehab from: [facility] Date of Admission to Rehab: 02/14/16 - Vital signs Vital Signs: Vital Signs Period Temp Pulse Resp BP Sys/Howard Pulse Ox Last 24 Hr 97.9 F 106 20 118/84 - Findings Detox History & Physical reviewed: Yes Concur with findings: Yes Comments/Additional Findings: discharged 02/10/17 from detox, return 02/13/17 for rehab. from detox to rehab admission as per protocol Inpatient Rehab Admission - Initial Determination Are CD services needed?: Yes Free of communicable disease: Yes Not in need of hospitalization: Yes - Rehab Admission Criteria Previous failed treatment: Yes Poor recovery environment: Yes Comorbidities: Yes Lacks judgement: No Patient is meeting Inpatient Rehab admission criteria:: Yes
[2017-02-13] MEDS ORDERED: ALBUTEROL SO4 18 GM HFA INHALER IH PRN (16:51)
[2017-02-13] MEDS ORDERED: ALBUTEROL SO4 0.083% IH SOL 2.5 MG/3 ML VIAL.NEB. NEB PRN (16:51)
[2017-02-13] MEDS ORDERED: METHOCARBAMOL 500 MG TABLET PO PRN (16:52)
[2017-02-13] MEDS: QUEtiapine FUMARATE 100 MG TABLET (FP) PO SCH (21:17)
[2017-02-13] MEDS: hydrOXYzine PAMOATE 50 MG CAPSULE (FP) PO PRN (21:17)
[2017-02-13] MEDS: THIAMINE HCL 100 MG TABLET (FP) PO SCH (21:17)
--- NOTE | 2017-02-14 06:33 | PN ---
S Progress Note Note: I was called by nurse to order labd for a patient admitted without lab orders
[2017-02-14] MEDS: NICOTINE 21 MG/24 HOURS TOPICAL PATCH TD SCH (09:49)
[2017-02-14] MEDS: PRENATAL VITAMINS W/ FOLIC ACID TABLET (FP) PO SCH (09:49)
[2017-02-14] MEDS ORDERED: PNEUMOC 13-VAL CONJ-DIP CRM/PF 0.5 ML DISP.SYRIN IM ONE (09:52)
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
[2017-02-14] MEDS: DIVALPROEX SODIUM 250 MG TABLET E.C. (FP) PO SCH ×2 (11:54→21:11)
[2017-02-14] MEDS: hydrOXYzine PAMOATE 50 MG CAPSULE (FP) PO PRN (11:54)
[2017-02-14] MEDS ORDERED: FLU VACCINE QUAD 60 MCG/0.5 ML (MDV 17-18) IM ONE (12:00)
[2017-02-14] MEDS ORDERED: PNEUMOCOCCAL 23 VACCINE 0.5 ML VIAL IM ONE (12:00)
[2017-02-14] MEDS: NICOTINE POLACRILEX 4 MG GUM BUC PRN ×3 (12:58→21:10)
[2017-02-14] MEDS: GABAPENTIN 100 MG CAPSULE (FP) PO SCH ×2 (15:51→21:09)
[2017-02-14] MEDS: THIAMINE HCL 100 MG TABLET (FP) PO SCH (21:09)
[2017-02-14] MEDS: diphenhydrAMINE HCL 50 MG CAPSULE PO PRN (21:09)
[2017-02-14] MEDS: QUEtiapine FUMARATE 100 MG TABLET (FP) PO SCH (21:11)
[2017-02-15] MEDS: GABAPENTIN 100 MG CAPSULE (FP) PO SCH ×3 (06:09→21:05)
[2017-02-15] MEDS: PRENATAL VITAMINS W/ FOLIC ACID TABLET (FP) PO SCH (09:53)
[2017-02-15] MEDS: NICOTINE 21 MG/24 HOURS TOPICAL PATCH TD SCH (09:53)
[2017-02-15] MEDS: DIVALPROEX SODIUM 250 MG TABLET E.C. (FP) PO SCH ×2 (09:53→21:05)
[2017-02-15] MEDS: NICOTINE POLACRILEX 4 MG GUM BUC PRN ×3 (09:54→21:06)
[2017-02-15] MEDS ORDERED: BUPRENORPHINE/NALOXONE 2 MG/0.5 MG FILM PACKET SL ONE (14:19)
--- NOTE | 2017-02-15 14:27 | PN ---
S Progress Note (SOAP) Subjective: Patient requesting to start suboxone therapy. As per patient, she was using suboxone from the streets 2-3 days/week with last use 1 year ago. She reports using 20 bags of heroin daily with last use on . As per patient, she has been trying to quit using heroin but it has been very difficult and wants to start suboxone so that she can stop using heroin. Patient stated that her counselor mentioned [facility] post discharge but she's not sure if that sight does suboxone. Patient made aware to discuss with her counselor placement for suboxone site post discharge. Objective: 02/15/17 14:27 Last Vital Signs Temp Pulse Resp BP Pulse Ox 97.4 F L 98 H 18 103/74 02/15/17 07:20 02/15/17 07:20 02/15/17 07:20 02/15/17 07:20 Laboratory Tests 02/14/17 06:00 HIV 1&2 Antibody Screen Negative HIV P24 Antigen Negative Labs noted Assessment: 02/15/17 14:28 Patient seen for opioid dependence, requesting to start suboxone Plan: Opioid dependence, chronic: start suboxone 2mg/0.5mg SL film daily, first dose today (discussed with Dr. Sheffield), will increase if warranted, patient will follow up in Suboxone clinic outpatient (counselor to arrange site prior to discharge), encouraged abstinence from illicit drugs in preventing health related problems including MO and unfortunately .
[2017-02-15] MEDS: THIAMINE HCL 100 MG TABLET (FP) PO SCH (21:05)
[2017-02-15] MEDS: QUEtiapine FUMARATE 100 MG TABLET (FP) PO SCH (21:05)
[2017-02-15] MEDS: diphenhydrAMINE HCL 50 MG CAPSULE PO PRN (21:06)
[2017-02-16] MEDS: GABAPENTIN 100 MG CAPSULE (FP) PO SCH ×3 (07:08→21:19)
[2017-02-16] MEDS: BUPRENORPHINE/NALOXONE 2 MG/0.5 MG FILM PACKET SL SCH (07:08)
[2017-02-16] MEDS: PRENATAL VITAMINS W/ FOLIC ACID TABLET (FP) PO SCH (10:08)
[2017-02-16] MEDS: DIVALPROEX SODIUM 250 MG TABLET E.C. (FP) PO SCH ×2 (10:08→21:19)
[2017-02-16] MEDS: NICOTINE 21 MG/24 HOURS TOPICAL PATCH TD SCH (10:08)
[2017-02-16] MEDS: NICOTINE POLACRILEX 4 MG GUM BUC PRN ×2 (10:09→13:52)
[2017-02-16] MEDS: COLLOIDAL OATMEAL 1 BAR EACH TP PRN (15:30)
[2017-02-16] MEDS: hydrOXYzine PAMOATE 50 MG CAPSULE (FP) PO PRN (20:11)
[2017-02-16] MEDS: SUVOREXANT 10 MG TABLET PO PRN (21:18)
[2017-02-16] MEDS: QUEtiapine FUMARATE 100 MG TABLET (FP) PO SCH (21:19)
[2017-02-16] MEDS: THIAMINE HCL 100 MG TABLET (FP) PO SCH (21:19)
[2017-02-17] MEDS: BUPRENORPHINE/NALOXONE 2 MG/0.5 MG FILM PACKET SL SCH (06:36)
[2017-02-17] MEDS: GABAPENTIN 100 MG CAPSULE (FP) PO SCH ×3 (06:36→21:16)
[2017-02-17] MEDS: NICOTINE 21 MG/24 HOURS TOPICAL PATCH TD SCH (09:46)
[2017-02-17] MEDS: DIVALPROEX SODIUM 250 MG TABLET E.C. (FP) PO SCH ×2 (09:46→21:16)
[2017-02-17] MEDS: PRENATAL VITAMINS W/ FOLIC ACID TABLET (FP) PO SCH (09:46)
[2017-02-17] MEDS: NICOTINE POLACRILEX 4 MG GUM BUC PRN (09:48)
[2017-02-17] MEDS: hydrOXYzine PAMOATE 50 MG CAPSULE (FP) PO PRN ×2 (12:33→17:15)
[2017-02-17] MEDS: QUEtiapine FUMARATE 100 MG TABLET (FP) PO SCH (21:16)
[2017-02-17] MEDS: THIAMINE HCL 100 MG TABLET (FP) PO SCH (21:16)
[2017-02-17] MEDS: SUVOREXANT 10 MG TABLET PO PRN (21:18)
[2017-02-18] MEDS: GABAPENTIN 100 MG CAPSULE (FP) PO SCH ×3 (07:02→22:03)
[2017-02-18] MEDS: hydrOXYzine PAMOATE 50 MG CAPSULE (FP) PO PRN ×4 (07:02→19:34)
[2017-02-18] MEDS: BUPRENORPHINE/NALOXONE 2 MG/0.5 MG FILM PACKET SL SCH (07:02)
[2017-02-18] MEDS ORDERED: ALBUTEROL SO4 0.083% IH SOL 2.5 MG/3 ML VIAL.NEB. NEB PRN (07:30)
[2017-02-18] MEDS: PRENATAL VITAMINS W/ FOLIC ACID TABLET (FP) PO SCH (09:40)
[2017-02-18] MEDS: DIVALPROEX SODIUM 250 MG TABLET E.C. (FP) PO SCH ×2 (09:40→21:12)
[2017-02-18] MEDS: NICOTINE 21 MG/24 HOURS TOPICAL PATCH TD SCH (09:40)
[2017-02-18] MEDS: NICOTINE POLACRILEX 4 MG GUM BUC PRN ×3 (09:42→21:13)
[2017-02-18] MEDS: SUVOREXANT 10 MG TABLET PO SCH (21:12)
[2017-02-18] MEDS: THIAMINE HCL 100 MG TABLET (FP) PO SCH (21:12)
[2017-02-18] MEDS: QUEtiapine FUMARATE 100 MG TABLET (FP) PO SCH (21:12)
[2017-02-19] MEDS: BUPRENORPHINE/NALOXONE 2 MG/0.5 MG FILM PACKET SL SCH (06:18)
[2017-02-19] MEDS: GABAPENTIN 100 MG CAPSULE (FP) PO SCH ×2 (06:59→13:24)
[2017-02-19] MEDS: NICOTINE 21 MG/24 HOURS TOPICAL PATCH TD SCH (10:05)
[2017-02-19] MEDS: DIVALPROEX SODIUM 250 MG TABLET E.C. (FP) PO SCH ×2 (10:05→21:13)
[2017-02-19] MEDS: PRENATAL VITAMINS W/ FOLIC ACID TABLET (FP) PO SCH (10:05)
[2017-02-19] MEDS: NICOTINE POLACRILEX 4 MG GUM BUC PRN ×3 (10:10→15:58)
[2017-02-19] MEDS: hydrOXYzine PAMOATE 50 MG CAPSULE (FP) PO PRN ×2 (12:18→17:04)
--- NOTE | 2017-02-19 12:48 | EKG ---
Test Reason : Blood Pressure : / mmHG Vent. Rate : 083 BPM Atrial Rate : 083 BPM P-R Int : 128 ms QRS Dur : 086 ms QT Int : 402 ms P-R-T Axes : 058 049 022 degrees QTc Int : 472 ms NORMAL SINUS RHYTHM NORMAL ECG WHEN COMPARED WITH ECG OF 06-FEB-2017 17:07, SINUS RHYTHM HAS REPLACED ECTOPIC ATRIAL RHYTHM Confirmed by MOOK TAYLOR MD ([id number]) on 02/19/2017 12:48:15 PM Referred By: Confirmed By:MOOK TAYLOR MD
--- NOTE | 2017-02-19 13:33 | PN ---
[facility] Progress Note (SOAP) Subjective: c/o rash bilateral inner thighs worse after hot shower itch and burn Objective: 02/19/17 13:29 Vital Signs - 24 hr 02/19/17 02/19/17 02/19/17 00:30 03:30 06:39 Temperature 97.7 F Pulse Rate 83 Respiratory 16 16 16 Rate Blood Pressure 92/64 Laboratory Tests 02/14/17 06:00 HIV 1&2 Antibody Screen Negative HIV P24 Antigen Negative labs reviewed Assessment: 02/19/17 13:32 rash from hot shower, steroid cream and lachydrin, counseled need for cold showers, reviewed labs, will repeat beause of elevated lfts and check hep c.
[2017-02-19] MEDS: GABAPENTIN 400 MG CAPSULE (FP) PO SCH ×2 (15:58→21:13)
--- NOTE | 2017-02-19 16:03 | PN ---
Psychiatric Progress Note Vital Signs: Vital Signs Period Temp Pulse Resp BP Sys/Howard Pulse Ox Last 24 Hr 97.7 F 83 16-16 92/64 Date of Session: 02/19/17 Chief Complaint:: "Stevenson extremely anxious,restless,irritable." HPI: Patient addressed Alcohol,Cocaine and Opioid dependence comorbid with Bipolar disorder. Current Medications: Active Medications Generic Name Dose Route Start Last Admin Trade Name Freq PRN Reason Stop Dose Admin Acetaminophen 650 mg 02/13/17 16:50 Tylenol - PO Q4H PRN FEVER OR PAIN Al Hydroxide/Mg Hydroxide 30 ml 02/13/17 16:50 Mylanta Oral Suspension - PO Q6H PRN DYSPEPSIA Albuterol Sulfate 2 puff 02/13/17 16:51 Ventolin Hfa Inhaler - IH Q4H PRN ASTHMA Albuterol Sulfate 1 amp 02/18/17 07:30 Ventolin 0.083% Nebulizer Soln - NEB 02/25/17 07:29 Q6H PRN SHORT OF BREATH/WHEEZING Betamethasone Dipropionate 1 applic 02/19/17 16:15 Diprosone 0.05% Ointment - TP DAILY KRISTY Buprenorphine/Naloxone 1 each 02/16/17 07:00 02/19/17 06:18 Suboxone 2mg/0.5mg Sl Film - SL 02/22/17 06:59 1 each DAILY@0700 KRISTY Administration Colloidal Oatmeal 1 applic 02/16/17 15:20 02/16/17 15:30 Aveeno Soap - TP 1 applic DAILY PRN Administration HYGEINE Diphenhydramine HCl 50 mg 02/14/17 11:36 02/15/17 21:06 Benadryl - PO 50 mg HS PRN Administration INSOMNIA Divalproex Sodium 250 mg 02/14/17 11:45 02/19/17 10:05 Depakote - PO 250 mg BID KRISTY Administration Eucalyptus/Menthol/Phenol/Sorbitol 1 each 02/13/17 16:50 Cepastat Lozenge - MM Q4H PRN SORE THROAT Gabapentin 400 mg 02/19/17 16:00 Neurontin - PO TID KRISTY Guaifenesin 10 ml 02/13/17 16:50 Robitussin Dm - PO Q6H PRN COUGH Hydroxyzine Pamoate 50 mg 02/13/17 19:52 01/08/18 12:18 Vistaril - PO 50 mg Q4H PRN Administration Ibuprofen 400 mg 02/13/17 16:50 Motrin - PO Q6H PRN PAIN Loperamide HCl 4 mg 02/13/17 16:50 Imodium - PO Q6H PRN DIARRHEA Magnesium Citrate 300 ml 02/13/17 16:50 Citroma - PO Q48H PRN CONSTIPATION Magnesium Hydroxide 30 ml 02/13/17 16:50 Milk Of Magnesia - PO DAILY PRN CONSTIPATION Methocarbamol 500 mg 02/13/17 16:52 Robaxin - PO Q8H PRN BACK PAIN Multi-Ingredient Lotion 1 applic 02/19/17 16:15 Eucerin (Small Jar) - TP DAILY KRISTY Nicotine 21 mg 02/14/17 10:00 02/19/17 10:05 Nicoderm Patch - TD 21 mg DAILY KRISTY Administration Nicotine Polacrilex 4 mg 02/13/17 16:50 02/19/17 12:19 Nicorette Gum - BUC 4 mg Q2H PRN Administration NICOTINE REPLACEMENT RX Multivit/Folic Acid/Iron 1 tab 02/14/17 10:00 02/19/17 10:05 Vitamins (Sjr) - PO 1 tab DAILY KRISTY Administration Pseudoephedrine/Triprolidine 1 combo 02/13/17 16:50 Actifed - PO TID PRN NASAL CONGESTION Quetiapine Fumarate 200 mg 02/19/17 22:00 Seroquel - PO HS KRISTY Thiamine HCl 100 mg 02/13/17 22:00 02/18/17 21:12 Vitamin B1 - PO 100 mg HS KRISTY Administration Current Side Effect: No Lab tests ordered: No Lab tests reviewed: Yes Provider note:: Chart was revuewed,patient was evaluated.She reports severe anxiety,inability ta stay still,mood swings,difficulties to fall asleep.Medication management has been discussed with the patient including side effects,benefits and dose adjustment.Seroquel 100 mg po hs will be adjusted to 200 mg po hs,Neurontin 200 mg po tid will be adjusted to 400 mg po tid. Supportive therapy provided including discussion of relaxation techniques, behavioral modification. Total face to face time:: 35 Mental Status Exam - Mental Status Exam Alert and Oriented to: Time, Place, Person Cognitive Function: Grossly Intact Patient Appearance: Unkempt Mood: Nervous, Anxious, Apprehensive Affect: Labile Patient Behavior: Restless, Cooperative Speech Pattern: Clear Voice Loudness: Normal Thought Process: Goal Oriented Thought Disorder: Not Present Hallucinations: Denies Suicidal Ideation: Denies Homicidal Ideation: Denies Insight/Judgement: Fair Sleep: Difficulty falling asleep Appetite: Fair Muscle strength/Tone: Normal Gait/Station: Normal Psychiatric Treatment Plan - Problem List (1) Asthma Current Visit: Yes Qualifiers: Asthma severity: unspecified severity Asthma persistence: unspecified Asthma complication type: uncomplicated Qualified Code(s): J45.909 - Unspecified asthma, uncomplicated (2) Nicotine dependence Current Visit: Yes (3) Bipolar II disorder Current Visit: Yes (4) Opioid dependence Current Visit: Yes (5) Cocaine dependence Current Visit: Yes (6) Alcohol dependence Current Visit: Yes
[2017-02-19] MEDS: MINERAL OIL/PETROLAT/WATER TOPICAL CREAM 113 GM JAR TP SCH (17:04)
[2017-02-19] MEDS: BETAMETHASONE DIPR 0.05% OINTMENT 15 GM TUBE TP SCH (17:04)
[2017-02-19] MEDS: THIAMINE HCL 100 MG TABLET (FP) PO SCH (21:13)
[2017-02-19] MEDS: SUVOREXANT 10 MG TABLET PO SCH (21:13)
[2017-02-19] MEDS: QUEtiapine FUMARATE 200 MG TABLET PO SCH (21:13)
[2017-02-20] MEDS: GABAPENTIN 400 MG CAPSULE (FP) PO SCH ×3 (06:09→21:16)
[2017-02-20] MEDS: hydrOXYzine PAMOATE 50 MG CAPSULE (FP) PO PRN ×4 (06:10→20:02)
[2017-02-20] MEDS: BUPRENORPHINE/NALOXONE 2 MG/0.5 MG FILM PACKET SL SCH (06:10)
[2017-02-20] MEDS: PRENATAL VITAMINS W/ FOLIC ACID TABLET (FP) PO SCH (10:04)
[2017-02-20] MEDS: DIVALPROEX SODIUM 250 MG TABLET E.C. (FP) PO SCH ×2 (10:04→21:16)
[2017-02-20] MEDS: BETAMETHASONE DIPR 0.05% OINTMENT 15 GM TUBE TP SCH (10:04)
[2017-02-20] MEDS: NICOTINE 21 MG/24 HOURS TOPICAL PATCH TD SCH (10:05)
[2017-02-20] MEDS: MINERAL OIL/PETROLAT/WATER TOPICAL CREAM 113 GM JAR TP SCH (10:05)
[2017-02-20] MEDS: NICOTINE POLACRILEX 4 MG GUM BUC PRN ×2 (10:06→21:17)
[2017-02-20 15:11] LABS: ALBUMIN 3.1 g/dl (3.4-5.0); ANION GAP 9 (8-16); BLOOD UREA NITROGEN 19 mg/dL (7-18); CHLORIDE 104 mmol/L (98-107); CO2 28 mmol/L (21-32); GLUCOSE,RANDOM 133 mg/dL (74-106); POTASSIUM 4.1 mmol/L (3.5-5.1); SGOT/AST 57 U/L (15-37); SGPT/ALT 87 U/L (12-78); SODIUM 141 mmol/L (136-145)
[2017-02-20 15:13] LABS: ALK PHOS 110 U/L (45-117); BILIRUBIN,TOTAL 0.5 mg/dL (0.2-1.0); CREATININE 0.6 mg/dL (0.55-1.02)
[2017-02-20] MEDS: THIAMINE HCL 100 MG TABLET (FP) PO SCH (21:15)
[2017-02-20] MEDS: QUEtiapine FUMARATE 200 MG TABLET PO SCH (21:16)
[2017-02-20] MEDS: SUVOREXANT 10 MG TABLET PO SCH (21:16)
[2017-02-21] MEDS: hydrOXYzine PAMOATE 50 MG CAPSULE (FP) PO PRN ×3 (06:45→21:19)
[2017-02-21] MEDS: GABAPENTIN 400 MG CAPSULE (FP) PO SCH ×3 (06:45→21:18)
[2017-02-21] MEDS: BUPRENORPHINE/NALOXONE 2 MG/0.5 MG FILM PACKET SL SCH (06:45)
[2017-02-21] MEDS ORDERED: PT OWN MED DRAWER 7, Y5N ONE ×2 (08:39→11:03)
[2017-02-21] MEDS: COLLOIDAL OATMEAL 1 BAR EACH TP PRN (10:05)
[2017-02-21] MEDS: PRENATAL VITAMINS W/ FOLIC ACID TABLET (FP) PO SCH (10:05)
[2017-02-21] MEDS: DIVALPROEX SODIUM 250 MG TABLET E.C. (FP) PO SCH ×2 (10:05→21:18)
[2017-02-21] MEDS: NICOTINE 21 MG/24 HOURS TOPICAL PATCH TD SCH (10:06)
[2017-02-21] MEDS: NICOTINE POLACRILEX 4 MG GUM BUC PRN (10:07)
[2017-02-21] MEDS: BETAMETHASONE DIPR 0.05% OINTMENT 15 GM TUBE TP SCH (10:07)
[2017-02-21] MEDS: MINERAL OIL/PETROLAT/WATER TOPICAL CREAM 113 GM JAR TP SCH (10:08)
[2017-02-21] MEDS ORDERED: AMMONIUM LACTATE 12% LOTION 225 GM BOTTLE TP PRN (13:58)
[2017-02-21] MEDS: THIAMINE HCL 100 MG TABLET (FP) PO SCH (21:18)
[2017-02-21] MEDS: QUEtiapine FUMARATE 200 MG TABLET PO SCH (21:18)
[2017-02-21] MEDS: SUVOREXANT 10 MG TABLET PO SCH (21:19)
[2017-02-22] MEDS: hydrOXYzine PAMOATE 50 MG CAPSULE (FP) PO PRN (06:45)
[2017-02-22] MEDS: GABAPENTIN 400 MG CAPSULE (FP) PO SCH ×2 (06:45→13:27)
[2017-02-22] MEDS ORDERED: BUPRENORPHINE/NALOXONE 2 MG/0.5 MG FILM PACKET SL SCH (07:00)
[2017-02-22] MEDS: PRENATAL VITAMINS W/ FOLIC ACID TABLET (FP) PO SCH (09:23)
[2017-02-22] MEDS: DIVALPROEX SODIUM 250 MG TABLET E.C. (FP) PO SCH (09:23)
[2017-02-22] MEDS: MINERAL OIL/PETROLAT/WATER TOPICAL CREAM 113 GM JAR TP SCH (09:24)
[2017-02-22] MEDS: NICOTINE 21 MG/24 HOURS TOPICAL PATCH TD SCH (09:24)
[2017-02-22] MEDS: NICOTINE POLACRILEX 4 MG GUM BUC PRN (09:25)
[2017-02-22 11:50] VITALS: BP 119/72; PULSE 102; TEMP 97.8
--- NOTE | 2017-02-22 13:22 | PN ---
S Progress Note (SOAP) Subjective: paient reports never +ve tested for hep c, first time viral load +veshared needles injecting heroin 2 bundles daily prior to admission, feels comfortable on suboxone 2mg Objective: 02/22/17 13:20 Vital Signs - 24 hr 02/22/17 02/22/17 02/22/17 00:30 03:30 07:34 Temperature 97.6 F Pulse Rate 87 Respiratory 16 16 18 Rate Blood Pressure 100/67 02/22/17 10:40 Temperature 97.8 F Pulse Rate 102 H Respiratory 17 Rate Blood Pressure 119/72 Laboratory Tests 02/14/17 02/19/17 02/20/17 06:00 13:00 08:07 Sodium Potassium Chloride Carbon Dioxide Anion Gap BUN Creatinine Creat Clearance w eGFR Random Glucose Calcium Total Bilirubin AST ALT Alkaline Phosphatase Total Protein Albumin Hepatitis C Antibody >11.0 H HCV Quantitation [id number] HCV RNA PCR log copy room technician/ml 4.884 HIV 1&2 Antibody Screen Negative HIV P24 Antigen Negative 02/20/17 09:15 Sodium 141 Potassium 4.1 Chloride 104 Carbon Dioxide 28 Anion Gap 9 BUN 19 H D Creatinine 0.6 D Creat Clearance w eGFR > 60 Random Glucose 133 H Calcium 9.0 Total Bilirubin 0.5 D AST 57 H D ALT 87 H D Alkaline Phosphatase 110 Total Protein 7.0 Albumin 3.1 L Hepatitis C Antibody HCV Quantitation HCV RNA PCR log copy room technician/ml HIV 1&2 Antibody Screen HIV P24 Antigen elevated lfts, +ve viral load Assessment: 02/22/17 13:21 pateint counsled re need for treatment of Hep c and prison effects on liver, need for mat with suboxone on adequate dose to prevent cravings, will follow up pcp, appt made drug treatment for suboxoen Mat
== END 2017-02-22 13:20 | disposition home or self-care (01) | DRG 772 ==
LOC: YASAS 11:53 → Y3E 17:33
PROVIDERS: ADMIT Psychiatry & Neurology Psychiatry; ATTEND Psychiatry & Neurology Psychiatry
PROC: HZ42ZZZ Group Counseling for Substance Abuse Treatment, Cognitive-Behavioral (ICD-10-PCS; principal; 2017-02-13)
DX: F11.20 Opioid dependence, uncomplicated (principal); F10.20 Alcohol dependence, uncomplicated; F14.20 Cocaine dependence, uncomplicated; F17.210 Nicotine dependence, cigarettes, uncomplicated; F31.81 Bipolar II disorder; J45.909 Unspecified asthma, uncomplicated
CPT/HCPCS: 36415; 80053; 86803; 87389; 87522; 90688; 90732; 93005; 93010; G0009